=== PATIENT | female | born 1960 | race American Indian/Alaskan Native ===

== ENCOUNTER 2021-05-10 17:14 | Emergency (ER) | payer SELFPAY ==
[2021-05-10 17:42] VITALS: BP 161/77
--- NOTE | 2021-05-10 18:18 | Emergency Department Report ---
ED General Adult HPI - General Chief complaint: Chest Pain Stated complaint: SHOULD RT/CHEST /AB PAINS PUI?: No Time Seen by Provider: 05/10/21 18:01 Source: patient, RN notes reviewed Mode of arrival: Ambulatory Limitations: No Limitations - History of Present Illness Initial comments: The patient was evaluated in the emergency department for symptoms described in the history of present illness. He/she was evaluated in the context of the global COVID-19 pandemic, which necessitated consideration that the patient might be at risk for infection with the virus that causes COVID-19. Institutional protocols and algorithms that pertain to the evaluation of patients at risk for COVID-19 are in a state of rapid change based on information released by regulatory bodies including the CDC and federal and state organizations. These policies and algorithms were followed during the patient's care in the emergency department. Please note that these policies, procedures and recommendations changed on a rapid basis. During the history and physical examination, I am chaperoned by DOTTIE Rasmussen The patient is a 61-year-old female. She is a retired government worker. She presents to the ER with a complaint of 1 year of right shoulder, right neck, right anterior chest and right posterior trapezius pain. She has follow-up with an financial reporting specialist in 3 days. She denies vomiting, diaphoresis, exertional shortness of breath, leg pain or leg swelling. There is a family history of heart disease in her brother and her father. She also endorses left anterior lateral anterior abdominal subjective change in sensation/numbness. She is not COVID-19 vaccinated. Denies headache, midline neck pain, vomiting, diaphoresis, exertional shortness of breath, DVT/PE risk factors -: month(s) Location: neck, chest, back, abdomen Radiation: back Severity scale (0 -10): 7 Consistency: intermittent Improves with: none Worsens with: none - Related Data Allergies Allergy/AdvReac Type Severity Reaction Status Date / Time No Known Allergies Allergy Verified 05/10/21 17:36 ED Review of Systems ROS: Stated complaint: SHOULD RT/CHEST /AB PAINS Other details as noted in HPI Constitutional: denies: fever Eyes: denies: eye discharge ENT: denies: epistaxis Respiratory: denies: cough Cardiovascular: chest pain Gastrointestinal: denies: abdominal pain, vomiting Musculoskeletal: arthralgia, myalgia Neurological: numbness. denies: weakness ED Past Medical Hx - Past Medical History Previous Medical History?: Yes Hx Hypertension: Yes - Surgical History Past Surgical History?: Yes Hx Cholecystectomy: Yes ED Physical Exam - General Limitations: No Limitations General appearance: alert, in no apparent distress - Head Head exam: Present: atraumatic, normocephalic - Eye Eye exam: Present: normal appearance, EOMI. Absent: nystagmus - ENT ENT exam: Present: normal exam, normal orophraynx, mucous membranes moist, normal external ear exam - Neck Neck exam: Present: normal inspection, full ROM. Absent: tenderness, meningismus - Respiratory Respiratory exam: Present: normal lung sounds bilaterally, chest wall tenderness. Absent: respiratory distress, wheezes, rales, rhonchi, stridor, decreased breath sounds - Cardiovascular Cardiovascular Exam: Present: regular rate, normal rhythm, normal heart sounds. Absent: bradycardia, tachycardia, irregular rhythm, systolic murmur, diastolic murmur, rubs, gallop - GI/Abdominal GI/Abdominal exam: Present: soft. Absent: distended, tenderness, guarding, rebound, rigid, pulsatile mass - Extremities Exam Extremities exam: Present: normal inspection (Chronic venous stasis changes noted in the bilateral lower extremity), full ROM, pedal edema (1+ edema in the bilateral lower extremity), other (2+ pulses noted in the bilateral upper and lower extremities. There is no palpable cord. negative Homans sign. Muscular compartments are soft. The pelvis is stable.). Absent: calf tenderness - Back Exam Back exam: Present: normal inspection, full ROM. Absent: tenderness, CVA tenderness (R), CVA tenderness (L), paraspinal tenderness, vertebral tenderness - Neurological Exam Neurological exam: Present: alert, oriented X3, normal gait, other (No facial droop. Tongue midline. Extraocular movements intact bilaterally. Facial sensation intact to light touch in V1, V2, V3 distribution bilaterally. 5 and a 5 strength in 4 extremities. Sensation intact to light touch in 4 ex tremities.). Absent: motor sensory deficit - Psychiatric Psychiatric exam: Present: flat affect - Skin Skin exam: Present: warm, dry, intact, normal color. Absent: rash ED Course Vital Signs 05/10/21 17:36 Temperature 98.1 F Pulse Rate 75 Respiratory 18 Rate Blood Pressure 161/77 [Right] O2 Sat by Pulse 100 Oximetry ED Medical Decision Making - Lab Data Vital Signs 05/10/21 17:36 Temperature 98.1 F Pulse Rate 75 Respiratory 18 Rate Blood Pressure 161/77 [Right] O2 Sat by Pulse 100 Oximetry - Medical Decision Making Differential diagnosis, occluding but not limited to: GERD, gastritis, hiatal hernia, pneumonia, costochondritis, radicular pain, acute coronary syndrome, pulmonary embolism Assessment and plan: 61-year-old female with 1year of right chest right shoulder right trapezius pain, acutely worse over the past 1 week. She has full range of motion in the upper and lower extremities, is clinically sober with a GCS of 15, neurovascularly intact, without redness, pus or streaking. She is not currently tachycardic, tachypneic or hypoxic, has a soft benign abdomen, without rebound, guarding or peritoneal signs, is awake, alert, oriented and of sound mind, and exhibits decision-making capacity. She denies DVT and pulmonary embolism risk factors, and she is low risk by Wells criteria for pulmonary embolism I recommended appropriate laboratory studies including troponin and D-dimer, x- ray the chest and EKG. Patient is declining these interventions. Patient reports that she is going to sign out AGAINST MEDICAL ADVICE. Patient is awake, alert, oriented of sound mind, and exhibits decision-making capacity. She is free from distracting injury. Risks of leaving, including , disability, paralysis, and permanent loss of quality of life are discussed with the patient who articulates these risks in her own words. She is encouraged to complete her COVID-19 vaccination series. She is encouraged to return to the emergency room right away if and when she changes her mind. Critical care attestation.: If time is entered above; I have spent that time in minutes in the direct care of this critically ill patient, excluding procedure time. ED Disposition Clinical Impression: COVID-19 vaccination not done, Right shoulder pain, History of chest pain Disposition: LEFT AGAINST MEDICAL ADVICE Is pt being admited?: No Does the pt Need Aspirin: No Condition: Undetermined Additional Instructions: As we discussed, you have left the hospital/emergency room AGAINST MEDICAL ADVI CE. By leaving, you risked , disability, paralysis, permanent loss of quality of life. The ER is open 24 hours a day, 7 days a week. It never closes. Please return to the emergency room right away if and when you change your mind. If you decide not to return to the emergency room, please follow-up with the listed physician referrals as soon as possible. Referrals: [facility] [place] [Provider Group] - [facility] [Provider Group] - [facility]
== END 2021-05-10 18:14 | disposition left against medical advice (07) ==
LOC: ED 17:14
DX: M25.511 Pain in right shoulder (principal); R07.89 Other chest pain; I10 Essential (primary) hypertension; Z90.49 Acquired absence of other specified parts of digestive tract; Z79.899 Other long term (current) drug therapy
CPT/HCPCS: 99282